=== PATIENT | male | born 1990 | race Caucasian/White ===

== ENCOUNTER 2020-06-23 21:06 | Emergency (ER) | payer SELFPAY ==
[2020-06-23] MEDS ORDERED: diphenhydrAMINE 50 MG/ML SDV IVPUSH ONE (21:24)
[2020-06-23] MEDS ORDERED: Ondansetron 4 MG/2 ML SDV IVPUSH ONE (21:24)
[2020-06-23] MEDS ORDERED: Ketorolac 30 MG/ML SDV IVPUSH ONE (21:24)
[2020-06-23] MEDS ORDERED: Sodium Chloride 0.9% 1,000 ML IV STA (21:24)
--- NOTE | 2020-06-23 21:24 | EDM.PDOC ---
ED HPI GENERAL MEDICAL PROBLEM - General Chief Complaint: Headache Stated Complaint: [facility] Time Seen by Provider: 06/23/20 21:10 Source of Information: Reports: Patient History Limitations: Reports: No Limitations - History of Present Illness INITIAL COMMENTS - FREE TEXT/NARRATIVE: Patient is a 30-year-old male presenting to the emergency department with complaints of acute onset of headache around 1930 this evening. Patient states that it is the worst headache he has ever had. An abrupt onset of a sharp stabbing pain which has subsided somewhat into a dull ache. He does occasionally get episodes of worsening sharp stabbing pain. He denies a history of migraines. He does have a history of high blood pressure. He was on prescription medications up until 2 years ago when he moved to [place]. His primary care provider would not refill his medications without him being seen in the clinic, and he has not been seen in the clinic. Blood pressure on triage was 211/102, however when sitting for about 15 minutes it came down to 176/108. Patient has not taken anything for pain today. Denies chest pain. He did have some tingling in his arms while in route and ambulance, therefore he received 324 mg of aspirin. He denies any vision changes or light sensitivity. He has had no nausea or vomiting. Denies any recent fever or chills. She admit s to drinking 12 alcoholic beverages daily on average, however he is able to go a day or 2 without drinking without experiencing withdrawal symptoms. He denies feeling tremorous and has never developed headaches after stopping drinking. He denies any alcohol consumption today. Temporal Headache Pain Score (Numeric/FACES): 6 - Related Data Allergies Allergy/AdvReac Type Severity Reaction Status Date / Time No Known Allergies Allergy Verified 06/23/20 21:16 Home Meds: Home Meds . [No Known Home Meds] 06/23/20 [History] amLODIPine [Norvasc] 5 mg PO DAILY #30 tab 06/23/20 [Rx] hydroCHLOROthiazide [Hydrochlorothiazide] 25 mg PO DAILY #30 tablet 06/23/20 [Rx] ED ROS GENERAL - Review of Systems Review Of Systems: See Below Constitutional: Reports: No Symptoms. Denies: Fever, Chills, Weakness HEENT: Reports: No Symptoms. Denies: Vision Change Respiratory: Reports: No Symptoms. Denies: Shortness of Breath, Cough Cardiovascular: Reports: No Symptoms. Denies: Chest Pain Endocrine: Reports: No Symptoms GI/Abdominal: Reports: No Symptoms. Denies: Abdominal Pain, Diarrhea, Nausea, Vomiting : Reports: No Symptoms Musculoskeletal: Reports: No Symptoms Skin: Reports: No Symptoms Neurological: Reports: Headache. Denies: Dizziness, Numbness Psychiatric: Reports: No Symptoms Hematologic/Lymphatic: Reports: No Symptoms Immunologic: Reports: No Symptoms - Physical Exam Exam: See Below Exam Limited By: No Limitations General Appearance: Alert, WD/WN, No Apparent Distress Head Exam: Atraumatic, Normocephalic Neck: Normal Inspection, Supple, Non-Tender, Full Range of Motion Respiratory/Chest: No Respiratory Distress, Lungs Clear, Normal Breath Sounds, No Accessory Muscle Use, Chest Non-Tender Cardiovascular: Normal Peripheral Pulses, Regular Rate, Rhythm, No Edema, No Gallop, No JVD, No Murmur, No Rub GI/Abdominal: Normal Bowel Sounds, Soft, Non-Tender, No Organomegaly, No Distention, No Abnormal Bruit, No Mass Neuro Exam (Abbreviated): Alert, Oriented, CN II-XII Intact, Normal Cognition, Normal Gait, Normal Reflexes, No Motor/Sensory Deficits Psychiatric: Normal Affect, Normal Mood Skin Exam: Warm, Dry, Intact, Normal Color, No Rash #1 Interpretation EKG Date: 06/23/20 Time: 21:24 Rhythm: NSR Rate (Beats/Min): 94 [place]: Normal P-Wave: Present QRS: Normal ST-T: Normal QT: Normal Course - Vital Signs Last Recorded V/S: Last Vital Signs Temp 97.2 F 06/23/20 21:07 Pulse 98 06/23/20 21:07 Resp 18 06/23/20 21:07 BP 160/97 H 06/23/20 22:19 Pulse Ox 96 06/23/20 21:07 - Orders/Labs/Meds Orders: Active Orders 24 hr Category Date Time Status EKG Documentation Completion [RC] STAT Care 06/23/20 21:16 Active Head wo Cont [CT] Stat Exams 06/23/20 21:15 Taken Sodium Chloride 0.9% [Normal Saline] 1,000 ml Med 06/23/20 21:24 Active IV NOW Medication Orders Sodium Chloride (Normal Saline) 1,000 mls @ 150 mls/hr IV NOW STA Stop: 06/24/20 04:03 Last Admin: 06/23/20 21:36 Dose: 150 mls/hr Documented by: JORGE LUIS Labs: Laboratory Tests 06/23/20 06/23/20 Range/Units 21:14 21:14 WBC 7.66 (4.23-9.07) K/mm3 RBC 4.80 (4.63-6.08) M/mm3 Hgb 16.0 (13.7-17.5) gm/dl Hct 46.3 (40.1-51.0) % MCV 96.5 H (79.0-92.2) fl MCH 33.3 H (25.7-32.2) pg MCHC 34.6 (32.2-35.5) g/dl RDW Std Deviation 43.0 (35.1-43.9) fL Plt Count 155 L (163-337) K/mm3 MPV 11.4 (9.4-12.3) fl Neut % (Auto) 69.0 H (34.0-67.9) % Lymph % (Auto) 22.5 (21.8-53.1) % [place] % (Auto) 7.4 (5.3-12.2) % Eos % (Auto) 0.7 L (0.8-7.0) Baso % (Auto) 0.1 (0.1-1.2) % Neut # (Auto) 5.29 (1.78-5.38) K/mm3 Lymph # (Auto) 1.72 (1.32-3.57) K/mm3 [place] # (Auto) 0.57 (0.30-0.82) K/mm3 Eos # (Auto) 0.05 (0.04-0.54) K/mm3 Baso # (Auto) 0.01 (0.01-0.08) K/mm3 Sodium 139 (136-145) mEq/L Potassium 3.9 (3.5-5.1) mEq/L Chloride 102 (98-107) mEq/L Carbon Dioxide 25 (21-32) mEq/L Anion Gap 15.9 H (5-15) BUN 13 (7-18) mg/dL Creatinine 1.0 (0.7-1.3) mg/dL Est Cr Clr Drug Dosing 115.04 mL/min Estimated GFR (MDRD) > 60 (>60) mL/min BUN/Creatinine Ratio 13.0 L (14-18) Glucose 124 H (74-106) mg/dL Calcium 9.4 (8.5-10.1) mg/dL Total Bilirubin 0.4 (0.2-1.0) mg/dL AST 33 (15-37) U/L ALT 99 H (16-63) U/L Alkaline Phosphatase 70 (46-116) U/L Troponin I < 0.017 (0.00-0.056) ng/mL Total Protein 7.8 (6.4-8.2) g/dl Albumin 4.1 (3.4-5.0) g/dl Globulin 3.7 gm/dL Albumin/Globulin Ratio 1.1 (1-2) Free T4 1.08 (0.76-1.46) ng/dL TSH 3rd Generation 2.407 (0.358-3.74) uIU/mL Meds: Medications Generic Name Dose Route Start Last Admin Trade Name Crescencioq PRN Reason Stop Dose Admin Sodium Chloride 1,000 mls @ 150 mls/hr 06/23/20 21:24 06/23/20 21:36 Normal Saline IV 06/24/20 04:03 150 mls/hr NOW STA Administration Discontinued Medications Generic Name Dose Route Start Last Admin Trade Name Crescencioq PRN Reason Stop Dose Admin Amlodipine Besylate 5 mg 06/23/20 22:06 06/23/20 22:19 Norvasc PO 06/23/20 22:07 5 mg ONETIME ONE Administration Diphenhydramine HCl 50 mg 06/23/20 21:24 06/23/20 21:38 Benadryl IVPUSH 06/23/20 21:25 50 mg ONETIME ONE Administration Hydrochlorothiazide 25 mg 06/23/20 22:06 06/23/20 22:19 Hydrochlorothiazide PO 06/23/20 22:07 25 mg ONETIME ONE Administration Ketorolac Tromethamine 30 mg 06/23/20 21:24 06/23/20 21:39 Toradol IVPUSH 06/23/20 21:25 30 mg ONETIME ONE Administration Ondansetron HCl 4 mg 06/23/20 21:24 06/23/20 21:37 Zofran IVPUSH 06/23/20 21:25 4 mg ONETIME ONE Administration - Re-Assessments/Exams Free Text/Narrative Re-Assessment/Exam: 06/23/20 22:07 CT scan of the patient's head showed no acute intracranial abnormalities. Blood work was found to be grossly unremarkable. Thyroid levels were normal. Patient is feeling much better after the medications given. Blood pressure came down to 155/95. We will started him on amlodipine 5 mg daily as well as hydrochlorothiazide 25 mg daily. I will send prescription to this to [facility]. Discussed that he should purchase a home blood pressure monitor and check his blood pressure daily and keep a log of this. Follow-up in the clinic. A referral will be sent to Malgorzata Moise NP. Discharge instructions as documented. Departure - Departure Time of Disposition: 22:08 Disposition: Home, Self-Care 01 Condition: Good Clinical Impression: Head ache Qualifiers: Headache type: unspecified Headache chronicity pattern: acute headache Intractability: not intractable Qualified Code(s): R51.9 - Headache, unspecified Hypertension Qualifiers: Hypertension type: unspecified Qualified Code(s): I10 - Essential (primary) hypertension - Discharge Information *PRESCRIPTION DRUG MONITORING PROGRAM REVIEWED*: No *COPY OF PRESCRIPTION DRUG MONITORING REPORT IN PATIENT CAROLE: No Prescriptions: hydroCHLOROthiazide [Hydrochlorothiazide] 25 mg PO DAILY #30 tablet amLODIPine [Norvasc] 5 mg PO DAILY #30 tab Instructions: General Headache Without Cause, [id number], Hypertension, Adult Referrals: Malgorzata Moise NP [Nurse Practitioner] - Forms: ED Department Discharge Additional Instructions: You were seen in the emergency department today for headache. Upon initial arrival to the ER, your blood pressure was found to be quite elevated, however it did come down to a more manageable range, however it was still elevated. Your work-up included a CT scan of your head, EKG of your heart, and blood work. Your work-up was found to be overall normal. Head CT showed no bleeding or other abnormalities. Your blood work was normal. EKG was also normal. While in the ER, you received IV fluids, Toradol for pain, Benadryl, and Zofran for nausea. You also received your first dose of blood pressure medications, amlodipine, and hydrochlorothiazide. This did improve your headache. Recommend that you go home and rest. If headache worsens, you may take Tylenol 1000 mg. Do not take ibuprofen for about 6 hours after the medications you received in the ER. Prescription for amlodipine and hydrochlorothiazide has been sent to [facility]. Pick this up and take these medications daily. Recommend that you purchase a home blood pressure cuff and check your blood pressure daily. Keep a log of these blood pressure readings. Call and schedule a follow-up appointment in the clinic for 1 week from now. Referral has been sent to Malgorzata Webster NP. The number to schedule with her as listed below. You experience any new or worsening symptoms, please do not hesitate to return to the emergency department. Sepsis Event Note (ED) - Evaluation Sepsis Screening Result: No Definite Risk - Focused Exam Vital Signs: Vital Signs Temp Pulse Resp BP BP Pulse Ox 06/23/20 22:19 160/97 H 06/23/20 21:07 97.2 F 98 18 211/102 H 96 - My Orders Last 24 Hours: My Active Orders 06/23/20 21:15 Head wo Cont [CT] Stat 06/23/20 21:16 EKG Documentation Completion [RC] STAT 06/23/20 21:24 Sodium Chloride 0.9% [Normal Saline] 1,000 ml IV NOW - Assessment/Plan Last 24 Hours: My Active Orders 06/23/20 21:15 Head wo Cont [CT] Stat 06/23/20 21:16 EKG Documentation Completion [RC] STAT 06/23/20 21:24 Sodium Chloride 0.9% [Normal Saline] 1,000 ml IV NOW
[2020-06-23] MEDS ORDERED: Hydrochlorothiazide 25 MG Tab PO ONE (22:06)
[2020-06-23] MEDS ORDERED: amLODIPine 5 MG Tab PO ONE (22:06)
== END 2020-06-23 22:23 | disposition home or self-care (01) ==
LOC: JD.ED 21:06
DX: I10 Essential (primary) hypertension (principal); Z79.899 Other long term (current) drug therapy
CPT/HCPCS: 36415; 70450; 80053; 84439; 84443; 84484; 85025; 93005; 96374; 96375; 99285; A9270; J1200; J1885; J2405; J7030; 99284

== ENCOUNTER 2020-06-30 13:57 | Emergency (ER) | payer SELFPAY ==
[2020-06-30] MEDS ORDERED: Sodium Chloride 0.9% 1,000 ML IV ONE (14:14)
[2020-06-30] MEDS ORDERED: Sodium Chloride 0.9% 10 ML Syringe FLUSH PRN (14:14)
[2020-06-30] MEDS ORDERED: Ketorolac 30 MG/ML SDV IVPUSH ONE (14:14)
[2020-06-30] MEDS ORDERED: diphenhydrAMINE 50 MG/ML SDV IVPUSH ONE (14:14)
[2020-06-30] MEDS ORDERED: Metoclopramide 10 MG/2 ML SDV IVPUSH ONE (14:14)
--- NOTE | 2020-06-30 14:50 | EDM.PDOC ---
ED HPI GENERAL MEDICAL PROBLEM - General Chief Complaint: Headache Stated Complaint: HEADACHE Time Seen by Provider: 06/30/20 14:14 Source of Information: Reports: Patient, Old Records, RN Notes Reviewed History Limitations: Reports: No Limitations - History of Present Illness INITIAL COMMENTS - FREE TEXT/NARRATIVE: Patient is a 30-year-old male who presents to the ED for evaluation of his ongoing headache. Patient states this is been present for the last 3 days, he was seen here on 23 June for a headache, had a head CT, was given some IV medications along with some labs for evaluation. He was started on blood pressure medications as he was found to be hypertensive. He states he has been taking these medications as prescribed. The list of blood pressures he has b rought in at home has ranged from 150 systolically to 175. There was one instance of a systolic blood pressure being 190. Patient states that he is continuing to have a headache on the left side of his head, he feels like it is throbbing, he has some pressure behind his left eye, and pain that radiates down the left side of his neck into his left shoulder. He denies any nausea or vomiting or diarrhea, no change in vision but states he is slightly light sensitive. He did try 4 tablets of ibuprofen at home this morning at 6 AM along with 2 tablets of aspirin at 11, and states this is not really helped much. He states that coughing and movement seem to make this worse. His blood pressure at time of triage was 175/109, when he is sitting in the room, is 161/95. He has not been known to have a history of headaches or migraines. He is an everyday drinker per his history. He is to set up care with Malgorzata Moise in our clinic. - Related Data Allergies Allergy/AdvReac Type Severity Reaction Status Date / Time No Known Allergies Allergy Verified 06/23/20 21:16 Home Meds: Home Meds amLODIPine [Norvasc] 5 mg PO DAILY #30 tab 06/23/20 [Rx] hydroCHLOROthiazide [Hydrochlorothiazide] 25 mg PO DAILY #30 tablet 06/23/20 [Rx] Past Medical History Cardiovascular History: Reports: Hypertension - Infectious Disease History Infectious Disease History: Reports: Chicken Pox Social & Family History - Family History Family Medical History: Noncontributory - Tobacco Use Tobacco Use Status *Q: Current Every Day Tobacco User Years of Tobacco use: 15 Packs/Tins Daily: 2 - Caffeine Use Caffeine Use: Reports: Coffee, Energy Drinks ED ROS GENERAL - Review of Systems Review Of Systems: Comprehensive ROS is negative, except as noted in HPI. - Physical Exam Exam: See Below Exam Limited By: No Limitations General Appearance: Alert, WD/WN, No Apparent Distress Eye Exam: Bilateral Eye: EOMI, Normal Inspection, PERRL Respiratory/Chest: No Respiratory Distress, Lungs Clear, Normal Breath Sounds, No Accessory Muscle Use, Chest Non-Tender Cardiovascular: Normal Peripheral Pulses, Regular Rate, Rhythm, No Murmur GI/Abdominal: Normal Bowel Sounds, Soft, Non-Tender, No Distention, No Mass Neuro Exam (Abbreviated): Alert, Oriented, Normal Cognition, No Motor/Sensory Deficits Extremities: Normal Inspection, Normal Range of Motion, Non-Tender, No Pedal Edema, Normal Capillary Refill Psychiatric: Normal Affect, Normal Mood Skin Exam: Warm, Dry, Intact, Normal Color, No Rash Course - Vital Signs Last Recorded V/S: Last Vital Signs Temp 98.2 F 06/30/20 14:07 Pulse 89 06/30/20 14:07 Resp 18 06/30/20 14:07 BP 175/109 H 06/30/20 14:07 Pulse Ox 97 06/30/20 14:07 - Orders/Labs/Meds Orders: Active Orders 24 hr Category Date Time Status Peripheral IV Care [RC] . DIRECTED Care 06/30/20 14:15 Ordered Sodium Chloride 0.9% [Saline Flush] Med 06/30/20 14:14 Ordered 10 ml FLUSH ASDIRECTED PRN Peripheral IV Insertion Adult [OM.PC] Routine Oth 06/30/20 14:15 Ordered Medication Orders Sodium Chloride (Saline Flush) 10 ml FLUSH ASDIRECTED PRN PRN Reason: Keep Vein Open Last Admin: 06/30/20 14:38 Dose: 10 ml Documented by: LIDIA Meds: Medications Generic Name Dose Route Start Last Admin Trade Name Freq PRN Reason Stop Dose Admin Sodium Chloride 10 ml 06/30/20 14:14 06/30/20 14:38 Saline Flush FLUSH 10 ml ASDIRECTED PRN Administration Keep Vein Open Discontinued Medications Generic Name Dose Route Start Last Admin Trade Name Freq PRN Reason Stop Dose Admin Diphenhydramine HCl 25 mg 06/30/20 14:14 06/30/20 14:38 Benadryl IVPUSH 06/30/20 14:15 25 mg ONETIME ONE Administration Sodium Chloride 1,000 mls @ 999 mls/hr 06/30/20 14:14 06/30/20 14:38 Normal Saline IV 06/30/20 15:14 999 mls/hr ASDIRECTED ONE Administration Ketorolac Tromethamine 30 mg 06/30/20 14:14 06/30/20 14:38 Toradol IVPUSH 06/30/20 14:15 30 mg ONETIME ONE Administration Metoclopramide HCl 10 mg 06/30/20 14:14 06/30/20 14:38 Reglan IVPUSH 06/30/20 14:15 10 mg ONETIME ONE Administration - Re-Assessments/Exams Free Text/Narrative Re-Assessment/Exam: 06/30/20 14:49 Patient presents to the ED for his ongoing headache. He will get IV medications low some IV fluids for management of his headache. He will hopefully be discharged home with general recommendations. 06/30/20 15:29 Patient is feeling much better. Headache is down to a 2 out of 10. Will discharge home with general recommendations. Departure - Departure Time of Disposition: 15:29 Disposition: Home, Self-Care 01 Condition: Good Clinical Impression: Headache Qualifiers: Headache type: tension-type Headache chronicity pattern: acute headache Intractability: not intractable Qualified Code(s): G44.209 - Tension-type headache, unspecified, not intractable - Discharge Information *PRESCRIPTION DRUG MONITORING PROGRAM REVIEWED*: No *COPY OF PRESCRIPTION DRUG MONITORING REPORT IN PATIENT CAROLE: No Instructions: General Headache Without Cause, [id number] Referrals: PCP,None [Primary Care Provider] - Forms: ED Department Discharge Additional Instructions: You were evaluated in the ED for your headache. You were given a combination of medications and IV fluid for management. This did seem to provide you pretty good relief of your symptoms. Recommend that you go home and rest in a quiet, darkened room. Try also to keep well hydrated. Please follow-up with your primary care provider for further evaluation and management of your blood pressure, and ongoing headaches. Please return to the ED if your symptoms should change or worsen. Sepsis Event Note (ED) - Evaluation Sepsis Screening Result: No Definite Risk - Focused Exam Vital Signs: Vital Signs Temp Pulse Resp BP Pulse Ox 06/30/20 14:07 98.2 F 89 18 175/109 H 97 - My Orders Last 24 Hours: My Active Orders 06/30/20 14:14 Sodium Chloride 0.9% [Saline Flush] 10 ml FLUSH ASDIRECTED PRN 06/30/20 14:15 Peripheral IV Care [RC] . DIRECTED Peripheral IV Insertion Adult [OM.PC] Routine - Assessment/Plan Last 24 Hours: My Active Orders 06/30/20 14:14 Sodium Chloride 0.9% [Saline Flush] 10 ml FLUSH ASDIRECTED PRN 06/30/20 14:15 Peripheral IV Care [RC] . DIRECTED Peripheral IV Insertion Adult [OM.PC] Routine
== END 2020-06-30 15:41 | disposition home or self-care (01) ==
LOC: JD.ED 13:57
DX: G44.209 Tension-type headache, unspecified, not intractable (principal); I10 Essential (primary) hypertension; F17.210 Nicotine dependence, cigarettes, uncomplicated; Z79.899 Other long term (current) drug therapy
CPT/HCPCS: 96374; 96375; 99283; J1200; J1885; J2765; J7030

== ENCOUNTER 2023-08-07 08:57 | Emergency (ER) | payer SELFPAY ==
[2023-08-07] MEDS ORDERED: Sodium Chloride 0.9% 500 ML IV ONE (09:19)
[2023-08-07] MEDS ORDERED: Ondansetron 4 MG/2 ML SDV IVPUSH ONE (09:19)
[2023-08-07] MEDS: Sodium Chloride 0.9% 10 ML Syringe FLUSH PRN ×2 (09:28→10:38)
[2023-08-07 09:32] LABS: BASOPHILS PERCENT AUTO 0.3 % (0.0-1.0); EOSINOPHILS ABSOLUTE AUTO 0.1 K/mm3 (0.0-0.4); EOSINOPHILS PERCENT AUTO 0.6 % (0.0-6.0); HEMATOCRIT 45.4 % (42.0-52.0); HEMOGLOBIN 16.4 gm/dl (14.0-18.0); IMMATURE GRAN ABSOLUTE AUTO 0.04 K/mm3 (0.00-0.05); IMMATURE GRAN PERCENT AUTO 0.4 % (0.0-0.4); LYMPHOCYTES ABSOLUTE AUTO 2.1 K/mm3 (1.0-4.8); LYMPHOCYTES PERCENT AUTO 22.6 % (24.0-44.0); MEAN CORPUSCULAR HEMOGLOBIN 33.8 pg (28.0-32.0); MEAN CORPUSCULAR HGB CONC 36.1 g/dl (32.0-36.0); MEAN CORPUSCULAR VOLUME 93.6 fl (83.0-99.0); MEAN PLATELET VOLUME 11.2 fl (9.4-12.4); MONOCYTES ABSOLUTE AUTO 0.6 K/mm3 (0.0-0.8); MONOCYTES PERCENT AUTO 6.5 % (0.0-8.0); NEUTROPHILS ABSOLUTE AUTO 6.5 K/mm3 (1.8-7.7); NEUTROPHILS PERCENT AUTO 69.6 % (41.0-71.0); PLATELET COUNT,PLT 164 K/mm3 (150-400); RED BLOOD CELL COUNT 4.85 M/mm3 (4.52-5.90); WHITE BLOOD CELL COUNT,WBC 9.39 K/mm3 (3.9-11.3)
[2023-08-07 10:03] LABS: ALANINE AMINOTRANSFERASE,ALT 57 U/L (16-63); ALBUMIN 3.8 g/dl (3.4-5.0); ALKALINE PHOSPHATASE 65 U/L (46-116); ANION GAP 17.2 (5-15); ASPARTATE AMNIOTRANSFERASE,AST 25 U/L (15-37); BILIRUBIN TOTAL 0.4 mg/dL (0.2-1.0); BLOOD UREA NITROGEN,BUN 12 mg/dL (7-18); CALCIUM 8.9 mg/dL (8.5-10.1); CARBON DIOXIDE,CO2 22 mEq/L (21-32); CHLORIDE,CL 104 mEq/L (98-107); CREATININE 0.8 mg/dL (0.7-1.3); EST CRCL DRUG DOSING (CG) 139.88 mL/min; ESTIMATED GFR 120 mL/min (>60); GLUCOSE RANDOM 111 mg/dL (70-99); MAGNESIUM 1.6 mg/dL (1.8-2.4); POTASSIUM,K 4.2 mEq/L (3.5-5.1); PROTEIN TOTAL,TP 7.7 g/dl (6.4-8.2); SODIUM,NA 139 mEq/L (136-145)
[2023-08-07 10:07] LABS: C-REACTIVE PROTEIN < 0.2 mg/dL (<1.0)
[2023-08-07] MEDS ORDERED: Iopamidol 612 MG/ML 100 ML Bottle IVPUSH ONE (10:31)
[2023-08-07] MEDS ORDERED: Sodium Chloride 0.9% 10 ML Syringe FLUSH ONE (10:31)
[2023-08-07 10:51] LABS: LACTIC ACID 1.2 mmol/L (0.4-2.0)
[2023-08-07] MEDS ORDERED: Magnesium Oxide 400 MG Tab PO ONE (11:09)
== END 2023-08-07 11:36 | disposition home or self-care (01) ==
LOC: JD.ED 08:57
DX: K42.9 Umbilical hernia without obstruction or gangrene (principal); I10 Essential (primary) hypertension; F17.210 Nicotine dependence, cigarettes, uncomplicated
CPT/HCPCS: 36415; 74177; 80053; 83605; 83735; 85025; 86140; 96374; 99284; A9270; J2405; J3490; J7030; Q9967